=== PATIENT | male | born 1995 | race Two or more races ===

== ENCOUNTER 2017-11-21 14:33 | Emergency (ER) | payer OTHER ==
--- NOTE | 2017-11-21 14:58 | ED Physician Documentation ---
PD HPI SKIN - Stated complaint Stated Complaint: L HAND IRRITATION FROM TATTOO - Chief complaint Chief Complaint: Wound - History obtained from History obtained from: Patient - History of Present Illness Timing - onset: How many days ago (4) Timing - duration: Days (4) Timing - details: Gradual onset, Still present Location: Chest, LUE Quality / character: Itchy, Discolored, Swelling Contributing factors: Other (recent tatoo) Similar symptoms before: Has not had sx before Recently seen: Not recently seen - Additional information Additional information: 22-year-old male had a tattoo done on his hand and on his chest about 12 days ago. He subsequently began to develop some redness right around the margins of the tattoo about 1 week after the tattoo was placed. He does have tattoos to his fingers that were placed several days after the initial tattoos and these do not appear affected at all. He has some inflammation on the tattoo of the chest wall and he has more of reaction to the tattoo on the left hand. Review of Systems Constitutional: denies: Fever Eyes: denies: Decreased vision Ears: denies: Ear pain Nose: denies: Congestion Throat: denies: Sore throat Respiratory: denies: Cough GI: denies: Vomiting Skin: reports: Rash Musculoskeletal: denies: Neck pain, Back pain, Extremity pain PD PAST MEDICAL HISTORY - Present Medications Home Medications: Ambulatory Orders Medication Instructions Recorded Confirmed Sulfamethoxazole/Trimethoprim 1 each PO BID #14 tablet 11/21/17 [Sulfamethoxazole-Tmp Ds Tablet] - Allergies Allergies/Adverse Reactions: Allergies Allergy/AdvReac Type Severity Reaction Status Date / Time No Known Drug Allergies Allergy Verified 11/21/17 14:40 PD ED PE NORMAL - Vitals Vital signs reviewed: Yes (normal ) - General General: Alert and oriented X 3, No acute distress, Well developed/nourished - HEENT HEENT: Atraumatic, PERRL, EOMI - Neck Neck: Supple, no meningeal sign, No bony TTP - Respiratory Respiratory: No respiratory distress - Derm Derm: Normal color, Warm and dry, Other (over the dorsum of the left hand there is a fresh tatoo and there is erythema about 2mm around the tattoo and not extending further. Tatoos placed 4 days later have no evidence of reation/ infection ) - Extremities Extremities: No deformity, No edema - Neuro Neuro: No motor deficit, No sensory deficit Eye Opening: Spontaneous Motor: Obeys Commands Verbal: Oriented GCS Score: 15 - Psych Psych: Normal mood, Normal affect Results - Vitals Vitals: Vital Signs - 24 hr 11/21/17 14:36 Temperature 36.8 C Heart Rate 79 Respiratory 16 Rate O2 Saturation 97 Oxygen O2 Source Room air PD MEDICAL DECISION MAKING - ED course Complexity details: considered differential, d/w patient ED course: 22-year-old male with a reaction to a recent tattoo has extension of erythema only a few millimeters from the edge of the tattoo and no drainage. I am suspecting a reaction to the tattoo itself but he does have newer tattoos that have no reaction. He is treated for both local reaction and infection. Departure - Departure Disposition: 01 Home, Self Care Clinical Impression: Tattoo reaction, Skin infection Condition: Stable Instructions: ED Staph Infec Abx Tx Only, ED Dermatitis Contact Follow-Up: [facility] [Provider Group] Prescriptions: Sulfamethoxazole/Trimethoprim [Sulfamethoxazole-Tmp Ds Tablet] 1 each PO BID # 14 tablet Comments: Today this appears difficult to determine if this is a localized irritation reaction or actual infection. Take the antibiotic as prescribed and use 1% hydrocortisone available [id number] to the top of the tattoo in the areas that are red.
== END 2017-11-21 15:28 | disposition home or self-care (01) ==
LOC: ED 14:33
DX: L08.9 Local infection of the skin and subcutaneous tissue, unspecified (principal)
CPT/HCPCS: 99283

== ENCOUNTER 2017-12-02 20:12 | Emergency (ER) | payer OTHER ==
[2017-12-02 20:20] VITALS: BP 154/76
--- NOTE | 2017-12-02 20:51 | ED Physician Documentation ---
PD HPI SKIN - Stated complaint Stated Complaint: LT HAND PX - Chief complaint Chief Complaint: Ext Problem - History obtained from History obtained from: Patient - History of Present Illness Timing - onset: How many weeks ago (2) Timing - details: Gradual onset, Still present Location: LUE Quality / character: Painful, Discolored, Raised Similar symptoms before: Treatment Recently seen: Emergency Dept - Additional information Additional information: Patient is a 22 year old male who is presenting to the emergency department for a rash over tattoo site. patient had his hand tattooed about a month ago. two weeks ago patient came to the emergency department for evaluation of redness and was started on bactrim. patient's symptoms did not improve. Review of Systems Ten Systems: 10 systems reviewed and negative Skin: reports: Rash PD PAST MEDICAL HISTORY - Past Medical History Past Medical History: No - Past Surgical History Past Surgical History: No - Present Medications Home Medications: Ambulatory Orders Medication Instructions Recorded Confirmed Sulfamethoxazole/Trimethoprim 1 each PO BID #14 tablet 11/21/17 [Sulfamethoxazole-Tmp Ds Tablet] Betamethasone/Propylene Glyc 1 applic TP BID #1 cream..g. 12/02/17 [Betamethasone Dp Aug 0.05% Crm] - Allergies Allergies/Adverse Reactions: Allergies Allergy/AdvReac Type Severity Reaction Status Date / Time No Known Drug Allergies Allergy Verified 12/02/17 20:20 - Social History Does the pt smoke?: No Smoking Status: Never smoker Does the pt drink ETOH?: No Does the pt have substance abuse?: No - Immunizations Immunizations are current?: Yes - POLST Patient has POLST: No PD ED PE NORMAL - Vitals Vital signs reviewed: Yes - General General: Alert and oriented X 3, No acute distress - HEENT HEENT: Atraumatic - Cardiac Cardiac: RRR - Respiratory Respiratory: No respiratory distress - Neuro Neuro: Alert and oriented X 3 Eye Opening: Spontaneous PD ED PE EXPANDED - Derm Derm: Rash (raised, rought rash limited to location of ink on patient's left hand, no streaking redness) Results - Vitals Vitals: Vital Signs - 24 hr 12/02/17 20:17 Temperature 37.1 C Heart Rate 83 Respiratory 18 Rate Blood Pressure 154/76 H O2 Saturation 99 Oxygen O2 Source Room air PD MEDICAL DECISION MAKING - ED course Complexity details: reviewed old records, reviewed results, re-evaluated patient , considered differential, d/w patient ED course: Patient was seen and examined at bedside. patient's rash was consitent with a dermatitis, but no infectious in nature. Patient required no further inpatient work up and was stable for discharge with outpatient follow up. - Sepsis Event Vital Signs: Vital Signs - 24 hr 12/02/17 20:17 Temperature 37.1 C Heart Rate 83 Respiratory 18 Rate Blood Pressure 154/76 H O2 Saturation 99 Oxygen O2 Source Room air Departure - Departure Disposition: Home, Self Care Clinical Impression: Tattoo reaction Condition: Good Instructions: Contact Dermatitis Follow-Up: primary,care provider [Other] - Within 3 Days Prescriptions: Betamethasone/Propylene Glyc [Betamethasone Dp Aug 0.05% Crm] 1 applic TP BID # 1 cream..g. Comments: Your symptoms today are being caused by a reaction to the tattoo. You should apply topical steroid on a section of your tattoo to see if it helps. You may need to follow up with your doctor for an evaluation by a delivery route driver. You should also try eucerin cream and keep the affected area covered.
== END 2017-12-02 20:59 | disposition home or self-care (01) ==
LOC: ED 20:12
DX: L81.8 Other specified disorders of pigmentation (principal)
CPT/HCPCS: 99283

== ENCOUNTER 2018-01-22 15:23 | Emergency (ER) | payer OTHER ==
[2018-01-22 15:32] VITALS: BP 130/71
== END 2018-01-22 15:33 | disposition left against medical advice (07) ==
LOC: ED 15:23
DX: Z53.21 Procedure and treatment not carried out due to patient leaving prior to being seen by health care provider (principal)

== ENCOUNTER 2021-10-27 09:14 | Outpatient (CLI) | payer OTHER ==
[2021-10-27 09:59] VITALS: BP 110/75
--- NOTE | 2021-10-27 09:59 | SLEEP CARE CONSULTATION ---
Information from patient questionnaire entered by Deonna Munoz MA. I have reviewed and concur with the information entered by Deonna Munoz MA. This document represents the service I personally performed and the decisions made by me, Crystal Gracia ARNP. History of Present Illness Service Date and Time: 10/27/2021 0914 Reason for Visit: New patient (ONSET 06/18/2018,) Chief Complaint: reports: Insomnia, Unrefreshed sleep, Snoring, Excessive daytime sleepiness, Observed pauses in breathing, Fatigue, Other (SCREAMING IN SLEEP AND PARALYSIS.) Date of Onset: AUGUST 2018 Usual bedtime: 1200 - 0100 AM Time it takes to fall asleep: HOURS SOMETIMES NEVER SLEEP Snores at night: Yes Observed to quit breathing while asleep: Yes Sleeps alone due to snoring: Yes Number of times waking at night: 2 - 3 TIMES Reasons for waking at night: reports: Snoring, Other (SCREAMING; he will also wake up feeling "incredibly anxious"). denies: Choking, Gasping for air Toss, Turn, or Twitch while sleeping: Yes (restless) Recalls having dreams: Yes (some; tries to journal them but will forget) Usually gets out of bed at: 0700; weekends about 10-11 AM Feels refreshed in the morning: No Morning headache: Yes (1-2 times a week; last couple hours, takes meds) Sleepy or fatigued during the day: Yes Ever fallen asleep while driving: No Takes day naps: Yes (almost daily for about 2-5 hours) Dreams during day naps: Yes (some are very vivid dreams; wakes up confused sometimes) Prior sleep studies: No Additional HPI information: I had the pleasure of seeing DORYS STEEN today regarding the possibility of him having a sleep disorder. His current complaints are excessive daytime sleepiness, fatigue, insomnia, observed pauses in breathing, snoring and unrefreshed sleep. He also complains of screaming in his sleep and sleep paralysis. He states he has trouble sleeping and snores very loudly per his . He states he will feel really tired but be unable to sleep. He feels very restless when in bed. He states that it can depend on day on how long he falls asleep, normally 30 minutes or more to fall asleep. He will not wake up every night, he can sleep without getting up during the night. - Parasomnia Symptoms Ever been unable to move upon waking from sleep: Yes (at least once a week) Walks in sleep: No Talks in sleep: Yes (screams and some talking not as often) Ever acted out dreams in sleep: No Ever felt weak in the knees when startled or emotional: Yes Bothered by creepy, crawly, restless sensations in legs: Yes (throughout the day; feels like he has to move) Problems with memory or concentration: Yes (both, more concentration) Subjective Initial [place] Sleepiness Scale score: 13 (10/2021) Past Medical History Past Medical History: reports: Anxiety, Depression, Other (2 yr ago started feeling an "irregular" heart movement in chest that feels "weird", noted throughout day with no specific trigger, very infreq - has not had checked out) Social History The patient's occupation is a AM. Patient is and lives in [place]. Have you smoked in the past 12 months: No Cigarettes per day (20/pack): 40 Years of smokin Quit date: 2018 Smoking Pack Years: 8.0 Alcohol use: No Caffeine use: Yes Caffeine amount and frequency: infrequent Family History Family history of sleep disordered breathing: No (UNKNOWN) Family Hx Sleep Apnea: Father: Snoring Allergies and Home Medications Known drug allergies: No Drug allergies reviewed: Yes Home medication list reviewed: Yes Allergy and home medication list: Allergies No Known Drug Allergies Allergy (Verified 12/02/17 20:20) Medications: Lorazepam - stopped 1 week ago on own Fluoxetine - stopped 1 week ago on own Review of Systems Urinary: reports: frequency Neurological: reports: headaches, disorientation. denies: head trauma Psychiatric: reports: anxiety, depression Ear/Nose/Throat: reports: nasal congestion, sinus problems, wisdom teeth removed. denies: injury to nose, tonsillectomy Endocrine: reports: sluggishness, increased urination Immunologic: denies: allergies to food or environment Physical Exam Vital signs obtained and entered by: KEITH ELLER Blood Pressure: 110/75 (RESP 16, RIGHT, PULSE 67) Heart Rate: 71 O2 Saturation: 98 (PAPER MASK) Height: 5 ft 10 in Weight: 201 lb (UNIFORM AND BOOTS) Body Mass Index: 28.8 BMI Classification: Overweight Neck circumference: 15 (INCHES) Mouth and throat: normal Soft palate: normal Hard palate: arched Uvula: normal Uvula visualization: 100% Mallampati Class I Tongue: enlarged in size with teeth salazar on lateral edges Tonsils: 1+ Neck: normal w/o lymphadenopathy or thyromegaly Heart: regular rate and rhythm Lungs: clear bilaterally Impression and Plan 1. Suspected Obstructive Sleep Apnea-Hypopnea Syndrome, as suggested by a history of loud and irregular snoring, observed cessation of breath while asleep, morning headache, unrefreshed sleep, cognitive impairment, and excessive daytime sleepiness. Narrow oropharynx and obesity are common predisposing factors for obstructive sleep apnea-hypopnea syndrome. I recommend proceeding to polysomnography to confirm the diagnosis and to assess severity. If the patient has significant sleep disordered breathing, a manual CPAP titration study will also be performed to find the optimal treatment pressure. I informed the patient of what the sleep studies involve and after some discussion, obtained agreement to proceed. The pathophysiology of obstructive sleep apnea-hypopnea syndrome was discussed with the patient and health risks of cardiovascular and cerebrovascular disease if not treated. Risks of drowsy driving discussed in detail and patient advised to avoid long distance driving and to puller machine at the first sign of drowsiness. Patient agreed to plan. * Schedule polysomnography * Avoid long distance driving or driving when feeling sleepy. * Avoid alcohol, sedative and muscle relaxant around bedtime. * Attempt to lose weight. * Review instructions provided by trained office staff on how to prepare for the sleep study. * Return for follow-up after sleep study completed. Counseling Topics: Weight loss health impact Visit Type: In Office Time Spent with Patient (minutes): 33 Provider Statement: I spent 100% of the Face to Face Visit with the patient with greater than 50% spent counseling the patient and coordination of care.
== END 2021-10-27 09:15 | disposition home or self-care (01) ==
LOC: SC 09:14
PROVIDERS: ATTEND Nurse Practitioner Family
DX: R06.83 Snoring (principal); G47.8 Other sleep disorders; R06.81 Apnea, not elsewhere classified; G47.10 Hypersomnia, unspecified; R53.83 Other fatigue; F32.A Depression, unspecified; Z87.891 Personal history of nicotine dependence; E66.3 Overweight; Z68.28 Body mass index [BMI] 28.0-28.9, adult
CPT/HCPCS: 99203; 99212

== ENCOUNTER 2021-11-21 19:26 | Outpatient (CLI) | payer OTHER | END 2021-11-21 19:27 | disposition home or self-care (01) | LOC: SC 19:26 | PROVIDERS: ATTEND Nurse Practitioner Family | DX: R06.83 Snoring (principal); G47.10 Hypersomnia, unspecified; R53.83 Other fatigue; R06.81 Apnea, not elsewhere classified; G47.8 Other sleep disorders | CPT/HCPCS: 95810 ==

== ENCOUNTER 2021-12-15 09:00 | Outpatient (CLI) | payer OTHER ==
[2021-12-15 09:40] VITALS: BP 138/97
--- NOTE | 2021-12-15 09:40 | SLEEP CARE CONSULTATION ---
Information from patient questionnaire entered by Deonna Munoz MA. I have reviewed and concur with the information entered by Deonna Munoz MA. This document represents the service I personally performed and the decisions made by Basil lemons Caren J, ARNP. History of Present Illness Service Date and Time: 12/15/2021 0900 Initial [place] Sleepiness Scale score: 13 (10/2021) Current [place] Sleepiness Scale score: 11 (12/15/21) Additional HPI information: DORYS STEEN returns for follow up and results of the recently performed polysomnography. The patient was informed of the following findings: No significant sleep disordered breathing with an average AHI of 3.6 and ronny oxygen saturation of 89%. I explained the pathophysiology behind obstructive sleep apnea. Patient does not have sleep apnea and was advised how weight gain could increase the risk of developing sleep apnea in the future. I strongly encouraged the patient to lose weight. Patient has light to moderate snoring. Snoring can be reduced by weight loss. Weight loss is best achieved with diet consult. Patient instructed to contact PCP for referral. Snoring can also be treated with an oral appliance from a dentist. Advised to check insurance coverage. In addition, an ENT evaluation can be do to see if other treatment is indicated. Patient does not drink alcohol. Patient was cautioned about risks of drowsy driving until sleepiness symptoms resolve. Patient denies drowsy driving. Sleep Study - Results Type of Sleep Study: Polysomnography (F/U POLY, 11/21/2021, NEG) Prior sleep studies: No Polysomnography/Home Sleep Study results: IMPRESSION: The quality of the study is good. The patient had normal sleep efficiency. The sleep architecture was abnormal for sleep fragmentation and reduced amount of time spent in REM and slow wave sleep (N3). Respiratory monitoring showed no significant sleep disordered breathing (AHI = 3.6) or hypoxia (ronny oxygen saturation of 89%). The few respiratory events occurred almost exclusively during supine sleep (supine AHI = 4.8; non-supine = 0.56). Snore was light to moderate in intensity. There was no significant periodic leg movement of sleep. Cardiac rhythm was normal sinus rhythm without significant arrhythmia. No abnormal behavior (parasomnia) observed during the night. Allergies and Home Medications Home medication list reviewed: Yes (no changes) Allergy and home medication list: Allergies No Known Drug Allergies Allergy (Verified 12/02/17 20:20) Review of Systems Review of systems same as previous: Yes (no changes) Physical Exam Vital signs obtained and entered by: KEITH LOPEZ Blood Pressure: 138/97 (Left) Heart Rate: 63 O2 Saturation: 98 Height: 5 ft 10 in Weight: 200 lb (Uniform and boots) Body Mass Index: 28.7 BMI Classification: Overweight Impression and Plan Snoring but no significant sleep disordered breathing. Patient advised that often weight loss will reduce snoring as well as apnea risk. An oral appliance can also be used for snoring. This would require a dental consultation. Patient cautioned not to use other online appliances as can cause bite issues. A list of accredited dentists in [facility] and one local dentist who makes oral appliances is available in our office. Patient is advised to check if insurance will cover. An ENT consult can also be helpful to determine if any other treatment is an option. Patient has history of anxiety and depression. He states these are not well controlled or treated at this time. I advised him to seek treatment for these feelings because depression and anxiety can contribute to poor sleep. He voiced understanding and agreement. * Attempt to lose weight * Avoid alcohol consumption near bedtime * The patient is cautioned about driving until sleepiness is completely resolved. * Return as needed for follow up. Counseling Topics: Weight loss health impact Visit Type: In Office Time Spent with Patient (minutes): 11 Provider Statement: I spent 100% of the Face to Face Visit with the patient with greater than 50% spent counseling the patient and coordination of care.
== END 2021-12-15 09:01 | disposition home or self-care (01) ==
LOC: SC 09:00
PROVIDERS: ATTEND Nurse Practitioner Family
DX: R06.83 Snoring (principal); E66.3 Overweight; Z68.28 Body mass index [BMI] 28.0-28.9, adult
CPT/HCPCS: 99212